=== PATIENT | female | born 2000 | race African-American/Black ===

== ENCOUNTER → 2023-02-13 | Outpatient (CLI) | payer SELFPAY ==
[2023-02-13 16:44] LABS: T4 (THYROXINE) 9.1 ug/dL (4.7-13.3); THYROID STIMULATING HORMONE 1.47 uIU/mL (0.36-3.74)
== END | disposition home or self-care (01) ==
LOC: LAB 11:51
PROVIDERS: ATTEND Internal Medicine Cardiovascular Disease
DX: I10 Essential (primary) hypertension (principal)
CPT/HCPCS: 36415; 84436; 84443; 84479